=== PATIENT | male | born 1975 | race Caucasian/White ===

== ENCOUNTER 2019-10-17 06:17 | Day surgery (SDC) | payer MEDICAID ==
[2019-10-08 16:37] LABS: BASOPHILS # (AUTO) 0.1 X10'3 (0-0.2); BASOPHILS % (AUTO) 0.6 % (0-1); EOSINOPHILS # (AUTO) 0.2 X10'3 (0-0.9); EOSINOPHILS % (AUTO) 1.4 % (0-6); LYMPHOCYTES # (AUTO) 2.8 X10'3 (1.1-4.8); LYMPHOCYTES % (AUTO) 26.2 % (21-51); MEAN CORPUSCULAR HEMOGLOBIN 30.2 PG (27.0-31.0); MEAN CORPUSCULAR HGB CONC 34.4 g/dL (33.0-36.5); MEAN CORPUSCULAR VOLUME 87.7 FL (78-98); MEAN PLATELET VOLUME 8.8 FL (7.4-10.4); MONOCYTES # (AUTO) 0.9 X10'3 (0-0.9); NEUTROPHILS # (AUTO) 6.9 X10'3 (1.8-7.7); NEUTROPHILS % (AUTO) 63.8 % (42-75); PRE OP HEMATOCRIT 42.7 % (42.0-52.0); PRE OP HEMOGLOBIN 14.7 g/dL (14.0-17.9); PRE OP PLATELET COUNT 278 X10'3 (140-440); RED BLOOD COUNT 4.87 X10'6 (4.70-6.10); RED CELL DISTRIBUTION WIDTH 13.9 % (11.5-14.5)
[2019-10-08 16:47] LABS: ALBUMIN 4.5 G/DL (3.4-5.0); ALBUMIN/GLOBULIN RATIO 1.2 (1.1-1.5); ALKALINE PHOSPHATASE 70 IU/L (46-116); BLOOD UREA NITROGEN 20 MG/DL (7-18); BUN/CREATININE RATIO 19.6 (5.4-32.0); CALCIUM 9.3 MG/DL (8.5-10.1); CHLORIDE 94 MMOL/L (99-107); CREATININE 1.02 MG/DL (0.60-1.10); PRE OP ALT 31 U/L (30-65); PRE OP ANION GAP 9 (8-16); PRE OP AST 20 U/L (10-37); PRE OP BILIRUB, TOTAL 0.9 MG/DL (0.0-1.0); PRE OP GLUCOSE 146 MG/DL (70-104); PRE OP POTASSIUM 3.8 MMOL/L (3.4-5.1); PRE OP SODIUM 132 MMOL/L (135-145); TOTAL CARBON DIOXIDE 29.2 MMOL/L (24-32); TOTAL PROTEIN 8.2 G/DL (6.4-8.2); eGFR 80 ML/MIN
[~2019-10-17] VITALS: Ht 180.3 cm; Wt 120.1 kg
[2019-10-17] VITALS (7 sets, daily range): BP systolic 100–131; BP diastolic 67–90
[~2019-10-17 06:17] MED LIST: BUS15T PO; DEXT20CA4 PO; DOCUMENT DATE & TIME OF BETA-BLOCKER PO ONE; DULO60CA45 PO; IBUP-1985 PO; LAMO100T65 PO; LAMO200T10 PO; LURA40TA3 PO; PREG100C PO; [UNRECOGNIZED DRUG - OTHER] PO; cefazolin/dext.iso 2gm/50ml 50 ML IV ONE; famotidine 20mg tablet PO ONE; ringers solution, lacted 1,000 ML IV SCH
[2019-10-17] MEDS ORDERED: LIDOcaine 0.5% (5mg/ml) 50ml vial ONE (07:22)
[2019-10-17] MEDS ORDERED: ringers solution, lacted 1,000 ML IV SCH (07:25)
[2019-10-17] MEDS ORDERED: ondansetron/PF 4mg/2ml inj IV PRN (07:25)
[2019-10-17] MEDS ORDERED: morphine 2 MG/ML inj. syringe IV PRN (07:25)
[2019-10-17] MEDS ORDERED: morphine 4 MG/ML inj SYRINge IV PRN (07:25)
[2019-10-17] MEDS ORDERED: hydrALAZINE 20mg/ml inj. IV PRN (07:25)
[2019-10-17] MEDS ORDERED: labetalol 20mg/4ml (5mg/ml) syringe IV PRN (07:25)
[2019-10-17] MEDS ORDERED: fentaNYL/PF 50MCG/1 ML 2ML syringe IV PRN ×2 (07:25)
[2019-10-17] MEDS ORDERED: BUPIVAcaine/PF 2.5mg/ml (0.25%) 10ml vial ONE ×2 (09:45→10:13)
[2019-10-17] MEDS ORDERED: MIDAZolam 1mg/ml 10ml vial ONE (09:58)
[2019-10-17] MEDS ORDERED: fentaNYL/PF 50MCG/1 ML 2ML syringe ONE (09:58)
--- NOTE | 2019-10-17 10:36 | NUR ---
Received from OR via , accompanied by Anesthesiologist DR SHELDON and report given by Anesthesiolgist. AWAKENS TO VOICE. VITALS STABLE. DRESSINGS DI. ERIC PAIN. FINGERS WARM AND PINK.
--- NOTE | 2019-10-17 11:36 | NUR ---
AWAKE AND ORIENTED. VITALS STABLE. DRESSINGS DI. ERIC PAIN. HOME WITH HIS MOM AT THIS TIME.
[2019-10-17] MEDS ORDERED: ketorolac trometh. 30mg/ml inj. ONE (13:01)
== END 2019-10-17 11:36 | disposition home or self-care (01) ==
LOC: PAS 06:17 → EDUNIT# 11:00 → PAS 11:36
PROVIDERS: ATTEND Orthopaedic Surgery Hand Surgery
DX: G56.01 Carpal tunnel syndrome, right upper limb (principal); G56.21 Lesion of ulnar nerve, right upper limb; M67.431 Ganglion, right wrist; E66.01 Morbid (severe) obesity due to excess calories; Z68.37 Body mass index [BMI] 37.0-37.9, adult; M19.041 Primary osteoarthritis, right hand; M19.072 Primary osteoarthritis, left ankle and foot; M19.011 Primary osteoarthritis, right shoulder; F31.9 Bipolar disorder, unspecified; F41.9 Anxiety disorder, unspecified; F90.9 Attention-deficit hyperactivity disorder, unspecified type; Z98.890 Other specified postprocedural states; Z87.891 Personal history of nicotine dependence; Z72.89 Other problems related to lifestyle; Z86.14 Personal history of Methicillin resistant Staphylococcus aureus infection; Z20.828 Contact with and (suspected) exposure to other viral communicable diseases; Z79.899 Other long term (current) drug therapy
CPT/HCPCS: 25111; 29848; 36415; 64718; 80053; 82948; 85025; 87635; 93005; A6222; J1885; J2001; J2250; J3010; J3490; A4215; A6449; A7000; J7120

== ENCOUNTER 2024-08-14 13:56 | Outpatient (CLI) | payer MEDICAID ==
[~2024-08-14 13:56] MED LIST changes: -DOCUMENT DATE & TIME OF BETA-BLOCKER PO ONE; -DULO60CA45 PO; +DULO60CA60 PO; +LURA40TA2 PO; -LURA40TA3 PO; -cefazolin/dext.iso 2gm/50ml 50 ML IV ONE; -famotidine 20mg tablet PO ONE; -ringers solution, lacted 1,000 ML IV SCH
--- NOTE | 2024-08-14 15:13 | RADIOLOGY REPORT ---
CLINICAL INFORMATION: Left shoulder pain. TECHNIQUE: Multisequence multiplanar MRI images of the left shoulder were obtained without contrast. COMPARISON: None FINDINGS: Acromioclavicular joint: There is mild acromioclavicular hypertrophy and mild edema. There is type 1 acromion. Small amount of fluid in the subacromial / subdeltoid bursa. Rotator cuff tendons: Supraspinatus, infraspinatus, subscapularis, and teres minor tendons are intact without evidence of tear or significant tendinosis. Biceps tendon: No significant tendinosis. No evidence of attrition or tear. Labrum: Normal anatomic variant sublabral recess of the superior labrum. No labral tear identified. Bones: No fracture or focal marrow contusion. Muscles: Normal muscle bulk. No atrophy. Other: No other significant findings. IMPRESSION: 1. Mild acromioclavicular hypertrophy with small amount of fluid in the subacromial / subdeltoid burs a. 2. No rotator cuff tear or significant tendinosis. No labral tear identified.
== END 2024-08-14 23:59 | disposition home or self-care (01) ==
LOC: MRI02 13:56
PROVIDERS: ATTEND Family Medicine
DX: M75.102 Unspecified rotator cuff tear or rupture of left shoulder, not specified as traumatic (principal); M25.512 Pain in left shoulder; M89.311 Hypertrophy of bone, right shoulder
CPT/HCPCS: 73221